=== PATIENT | female | born 1950 | race Caucasian/White ===

== ENCOUNTER 2016-11-12 16:23 | Emergency (ER) | payer MEDICAID ==
--- NOTE | 2016-11-12 16:40 | EDM.PDOC ---
ED HPI GENERAL MEDICAL PROBLEM - General Chief Complaint: Neurological Problem Stated Complaint: FACIAL AND RT HAND NUMBNESS Time Seen by Provider: 11/12/16 16:35 Source of Information: Reports: Patient History Limitations: Reports: No Limitations - History of Present Illness INITIAL COMMENTS - FREE TEXT/NARRATIVE: 66-year-old female reports to the ED due to persistent numbness in parts of her face on the right side. Very aware of numbness in the side of her right nose to her right midline of the lip and to the corner of her right mouth. No cranial nerve deficits other than sensory changes appreciated on examination. Similarly she has numbness and tingling in the distribution of her right arm and hand to carry the volar aspect of the hand but not so much on the dorsal aspect of the hand she has normal ulnar and radial nerve function. She states she woke up with a terrible kink in her neck this morning but subsequently resolved. She denies any headache nausea vomiting or visual changes. No feeling of being offkilter or balance. No history of any CVA orders symptoms. Is hypertensive but well controlled on Cozaar daily. No recent changes to any medications BP is 163 100 at this time. Onset: Today Onset Date: 11/12/16 Onset Time: 06:00 Duration: Hour(s): Location: Reports: Face (Right parts of her face mostly the midline on the right side.), Upper Extremity, Right Quality: Reports: Other (Paresthesias) Severity: Moderate Improves with: Reports: None Worsens with: Reports: None Context: Denies: Activity, Exercise, Lifting, Sick Contact, Trauma, Other Associated Symptoms: Denies: Confusion, Chest Pain, Cough, cough w sputum, Diaphoresis, Fever/Chills, Headaches, Loss of Appetite, Malaise, Nausea/Vomiting , Rash, Seizure, Shortness of Breath, Syncope, Weakness Treatments [employer]ER: Reports: Other (see below) (None.) - Related Data Allergies Allergy/AdvReac Type Severity Reaction Status Date / Time lisinopril Allergy Rash Verified 11/12/16 17:09 Home Meds: Home Meds Losartan/Hydrochlorothiazide [Losartan-HCTZ 100-25 MG] 1 tab PO DAILY 11/12/16 [ History] Lutein [Natural Lutein] 20 mg PO DAILY 11/12/16 [History] Multivitamin [Multivitamins] 1 tab PO DAILY 11/12/16 [History] Past Medical History Cardiovascular History: Reports: Hypertension Social & Family History - Living Situation & Occupation Living situation: Reports: Occupation: Unemployed ED ROS GENERAL - Review of Systems Review Of Systems: See Below Constitutional: Denies: Fever, Chills, Malaise, Weakness, Fatigue, Night Sweats , Diaphoresis, Decreased Appetite, Weight Loss, Weight Gain HEENT: Reports: No Symptoms Respiratory: Reports: No Symptoms Cardiovascular: Reports: No Symptoms Endocrine: Reports: No Symptoms GI/Abdominal: Reports: No Symptoms : Reports: No Symptoms Musculoskeletal: Reports: No Symptoms Skin: Reports: No Symptoms Neurological: Reports: Paresthesia (See history of present illness) Psychiatric: Reports: No Symptoms Hematologic/Lymphatic: Reports: No Symptoms Immunologic: Reports: No Symptoms ED EXAM, NEURO - Physical Exam Exam: See Below Exam Limited By: No Limitations General Appearance: Alert, WD/WN, Anxious, Mild Distress Eye Exam: Bilateral Eye: Normal Inspection, PERRL Ears: Normal TMs Nose: Normal Inspection, Normal Mucosa, No Blood Throat/Mouth: Normal Inspection, Normal Lips, Normal Teeth, Normal Gums, Normal Oropharynx Head Exam: Atraumatic, Normocephalic Neck: Normal Inspection, Supple, Non-Tender, Full Range of Motion. No: Lymphadenopathy (L), Lymphadenopathy (R) Respiratory/Chest: No Respiratory Distress, Lungs Clear, Normal Breath Sounds, No Accessory Muscle Use Cardiovascular: Normal Peripheral Pulses, Regular Rate, Rhythm, No Edema, No Murmur GI/Abdominal: Normal Bowel Sounds, Soft, Non-Tender, No Organomegaly, No Distention Neurological: Alert, Normal Mood/Affect, Normal Dorsiflexion, CN II-XII Intact, Normal Plantar Flexion, Normal Gait, Normal Reflexes, Oriented x 3, Abnormal Sensation (There is cc in the distribution of her right hand primarily in the volar aspect and she can't discern that is different than any of the fingers since the entire hand she appreciates that the dorsal side however a radial nerve area is normal to sensation.), Abnormal Light Touch (Right side of her face adjacent to the right a L of her nose to the midline of her upper lip into the corner of her right mouth. Sensation turns to normal as you get closer towards her ear). No: No Motor/Sensory Deficits, Abnormal Motor ( in the facial nerve root distribution. There are no other cranial nerve deficits in terms of function.), Abnormal Pin Prick DTR: 2+: Bicep (R), Bicep (L), Patella (R), Patella (L), Achilles (R), Achilles (L) Back Exam: Normal Inspection, Full Range of Motion Extremities: Normal Inspection, Normal Range of Motion, Non-Tender, No Pedal Edema, Normal Capillary Refill Psychiatric: Normal Affect, Normal Mood Skin Exam: Warm, Dry, Intact, Normal Color, No Rash EKG INTERPRETATION EKG Date: 11/12/16 Time: 16:45 Rhythm: NSR Rate (Beats/Min): 81 [place]: RAD-Right [place] Deviation P-Wave: Enlarged (Borderline at 86. Consider left atrial hypertrophy) QRS: Other (There is initial poor R-wave progression and then rather aggressive R-wave presentation suggesting possible septal hypertrophy.) ST-T: Normal QT: Normal Course - Vital Signs Last Recorded V/S: Last Vital Signs Temp 36.4 C 11/12/16 16:30 Pulse 74 11/12/16 19:07 Resp 18 11/12/16 19:07 BP 168/100 H 11/12/16 19:07 Pulse Ox 100 11/12/16 19:07 - Orders/Labs/Meds Orders: Active Orders 24 hr Category Date Time Status EKG Documentation Completion [RC] STAT Care 11/12/16 16:36 Active Labs: Laboratory Tests 11/12/16 11/12/16 11/12/16 Range/Units 16:50 16:50 16:50 WBC 5.76 (3.98-10.04) K/mm3 RBC 4.21 (3.98-5.22) M/mm3 Hgb 14.0 (11.2-15.7) gm/L Hct 39.0 (34.1-44.9) % MCV 92.6 (79.4-94.8) fl MCH 33.3 H (25.6-32.2) pg MCHC 35.9 H (32.2-35.5) g/dl RDW Std Deviation 42.0 (36.4-46.3) fL Plt Count 324 (182-369) K/mm3 MPV 8.1 L (9.4-12.3) fl Neutrophils % (Manual) 54 (40-60) % Band Neutrophils % 0 (0-10) % Lymphocytes % (Manual) 39 (20-40) % Atypical Lymphs % 0 % Monocytes % (Manual) 3 (2-10) % Eosinophils % (Manual) 2 (0.7-5.8) % Basophils % (Manual) 2 H (0.1-1.2) Platelet Estimate Adequate Plt Morphology Comment Normal RBC Morph Comment Not Reportable PT 9.8 (8.0-13.0) SECONDS INR 0.90 Sodium 125 L (136-145) mEq/L Potassium 3.3 L (3.5-5.1) mEq/L Chloride 89 L (98-107) mEq/L Carbon Dioxide 27 (21-32) mEq/L Anion Gap 12.3 (5-15) BUN 12 (7-18) mg/dL Creatinine 0.7 (0.55-1.02) mg/dL Est Cr Clr Drug Dosing 70.11 mL/min Estimated GFR (MDRD) > 60 (>60) mL/min BUN/Creatinine Ratio 17.1 (14-18) Glucose 96 (80-115) mg/dL Serum Osmolality (280-300) mosm/kg Calcium 9.6 (8.5-10.1) mg/dL Magnesium 1.7 L (1.8-2.4) mg/dl Total Bilirubin 0.6 (0.2-1.0) mg/dL AST 25 (15-37) U/L ALT 24 (14-59) U/L Alkaline Phosphatase 94 (46-116) U/L C-Reactive Protein < 0.2 (<1.0) mg/dL Total Protein 8.3 H (6.4-8.2) g/dl Albumin 4.5 (3.4-5.0) g/dl Globulin 3.8 gm/dL Albumin/Globulin Ratio 1.2 (1-2) // Range/Units 16:50 WBC (3.98-10.04) K/mm3 RBC (3.98-5.22) M/mm3 Hgb (11.2-15.7) gm/L Hct (34.1-44.9) % MCV (79.4-94.8) fl MCH (25.6-32.2) pg MCHC (32.2-35.5) g/dl RDW Std Deviation (36.4-46.3) fL Plt Count (182-369) K/mm3 MPV (9.4-12.3) fl Neutrophils % (Manual) (40-60) % Band Neutrophils % (0-10) % Lymphocytes % (Manual) (20-40) % Atypical Lymphs % % Monocytes % (Manual) (2-10) % Eosinophils % (Manual) (0.7-5.8) % Basophils % (Manual) (0.1-1.2) Platelet Estimate Plt Morphology Comment RBC Morph Comment PT (8.0-13.0) SECONDS INR Sodium (136-145) mEq/L Potassium (3.5-5.1) mEq/L Chloride (98-107) mEq/L Carbon Dioxide (21-32) mEq/L Anion Gap (5-15) BUN (7-18) mg/dL Creatinine (0.55-1.02) mg/dL Est Cr Clr Drug Dosing mL/min Estimated GFR (MDRD) (>60) mL/min BUN/Creatinine Ratio (14-18) Glucose (80-115) mg/dL Serum Osmolality 265 L (280-300) mosm/kg Calcium (8.5-10.1) mg/dL Magnesium (1.8-2.4) mg/dl Total Bilirubin (0.2-1.0) mg/dL AST (15-37) U/L ALT (14-59) U/L Alkaline Phosphatase (46-116) U/L C-Reactive Protein (<1.0) mg/dL Total Protein (6.4-8.2) g/dl Albumin (3.4-5.0) g/dl Globulin gm/dL Albumin/Globulin Ratio (1-2) Meds: Medications Discontinued Medications Generic Name Dose Route Start Last Admin Trade Name Freq PRN Reason Stop Dose Admin Sodium Chloride Confirm 11/12/16 17:40 11/12/16 17:47 Normal Saline Administered 11/12/16 17:41 Not Given Dose 1,000 mls @ as directed .ROUTE .STK-MED ONE Sodium Chloride 1,000 mls @ 999 mls/hr 11/12/16 17:41 11/12/16 17:45 Normal Saline IV 11/12/16 18:41 999 mls/hr STAT ONE Administration - Radiology Interpretation Free Text/Narrative:: 66-year-old female arrives in the ED with complaints of abnormal sensation in the right face primarily the midline of the face and right side of her nose upper lip corner of her mouth and right side of her chin. She has normal sensation as you move past the zygoma towards the ear. Similarly she complains appears easy in her right arm primarily in the volar aspect of the forearm and hand but she can't just discern whether ulnar nerve or median nerve is involved. Radial nerve seems to be intact on the dorsal aspect of her hand. Motor power and tone in all of her extremities is completely normal finger to nose heel to orr no pronator drift. No signs of CVA. Stroke protocol have been ordered by nursing triage nurse. CT head is been ordered. Plan routine labs to be done although I am skeptical that they will all be normal. - Re-Assessments/Exams Free Text/Narrative Re-Assessment/Exam: 11/12/16 16:58 CT of the brain is been carried out. Skull is intact with no skull fractures. There is no midline shift or mass effect. No intracranial bleeding. There is diffuse small vessel vascular changes in the basal ganglia bilaterally. No abnormal calcifications. ECG is also normal sinus rhythm at 81 per minute with initial poor R-wave progression. There are some suggestions of septal hypertrophy pattern with R-wave transition in V3 V4 rather prominent. Likely Lt atrial hypertrophy . 11/12/16 17:44 chemistry reveals her serum sodium is only 125. On questioning patient admits that she walks 4-5 miles a day and drinks water almost entirely throughout the day. Serum potassium was 3.3.Serum magnesium was 1.7. I did order serum osmolality. She will be given normal saline IV at 999 mils per hour. She'll also be given a Gatorade to drink. 11/12/16 19:17 patient is completed liter of IV fluids and feels much better in her face and there is some improvement in the postseason result in her right hand as well. Patient reassured that it'll take another couple of days to restore her serum sodium level to normal. She will be drinking Gatorade and juices inset appear water. Of note her serum osmolality was 265. She will follow-up if the paresthesias in her right face worsen in the next 24-36 hours. Departure - Departure Time of Disposition: 18:52 Disposition: Home, Self-Care 01 Condition: Fair Clinical Impression: Hyponatremia syndrome - Discharge Information Instructions: Hyponatremia Referrals: Selina Salcedo, [facility] [Primary Care Provider] - Forms: ED Department Discharge Additional Instructions: Evaluation in the emergency room today in regards to persistent what we call paresthesias which means numbness tingling in the right arm and hand is also and also noted in the right side of your face --in part of the distribution of the right facial nerve. CT of the head was Done and did not reveal any abnormalities on the left side of the brain. Lab tests proved however that you are low on sodium in your blood with it only being 125 and normal should be 140. Potassium was also slightly low at 3.3 and magnesium was slightly low at 1.7. It should be 1.8 and potassium should be 3.5-4. You therefore were treated with a liter of normal saline while in the emergency department. The cause of the hyponatremia is too much water and take. This has diluted the sodium in your bloodstream and I believe is causing the numbness tingling paresthesias affecting. Therefore important to maintain hydration with Gatorade Powerade and other juices instead appear water. Usually I would say 1 glass of water alternating with at least one glass of Gatorade Powerade or juice to make sure your sodium stays up in the normal range. The symptoms may dissipate over the next 3 days or so. It'll take a little while for your sodium to return to completely normal. Follow-up with her personal care physician if any further problems occur. - My Orders Last 24 Hours: My Active Orders 11/12/16 16:36 EKG Documentation Completion [RC] STAT - Assessment/Plan Last 24 Hours: My Active Orders 11/12/16 16:36 EKG Documentation Completion [RC] STAT
--- NOTE | 2016-11-12 17:28 | CT ---
Head CT Technique: Multiple axial sections through the brain were obtained. Intravenous contrast was not utilized. Comparison: No previous intracranial imaging. Findings: Small low-density abnormality is noted within the right basal ganglia. This is felt compatible with old lacunar infarct. Ventricles along with basal cisterns and sulci over the convexities are mildly prominent. No other abnormal parenchymal densities are seen. No evidence of intracranial hemorrhage. No midline shift or mass effect is appreciated. Bone window settings were reviewed which shows mild mucosal thickening within the frontal sinuses which is felt to be incidental. No acute calvarial abnormality is seen. Impression: 1. Old lacunar infarct within the right basal ganglia. 2. Slight mucosal thickening within the right frontal sinus which is felt to be incidental. 3. No acute intracranial abnormality is appreciated. Diagnostic code #3
[2016-11-12] MEDS ORDERED: Sodium Chloride 0.9% 1,000 ML ONE (17:40)
[2016-11-12] MEDS ORDERED: Sodium Chloride 0.9% 1,000 ML IV ONE (17:41)
[2016-11-12 19:08] VITALS: BP 168/100
== END 2016-11-12 19:00 | disposition home or self-care (01) ==
LOC: JD.ED 16:23
DX: E87.1 Hypo-osmolality and hyponatremia (principal); I10 Essential (primary) hypertension; Z79.899 Other long term (current) drug therapy; Z88.8 Allergy status to other drugs, medicaments and biological substances
CPT/HCPCS: 36415; 70450; 80053; 83735; 83930; 85025; 85610; 86140; 93005; 96360; 99285; J7040; 99284